=== PATIENT | female | born 1950 | race Hispanic/Latino ===

== ENCOUNTER 2017-11-20 07:35 | Day surgery (SDC) | payer MEDICARE, MEDICAID ==
[2017-11-17 14:27] VITALS: BMI 41.5
[2017-11-20 09:21] LABS: #Eosinphils 0.6 thou/uL (0.0-0.7); #Monocytes 0.6 thou/uL (0.11-0.59); #Neutrophils 5.6 thou/uL (1.40-6.50); %Basophils 0.5 % (0.0-1.0); %Eosinophils 6.6 % (0.0-10.0); %Lymphocytes 22.7 % (21.0-51.0); %Monocytes 6.4 % (0.0-10.0); %Neutrophils 63.8 % (42.0-75.0); Hemoglobin 10.4 g/dL (12.0-16.0); Mean Corpuscular HGB CONC 31.5 g/dL (32.0-36.0); Mean Corpuscular Hemoglobin 25.2 pg (27.0-31.0); Mean Platelet Volume 9.3 fL (7.4-10.4); Platelet Count 161 thou/uL (130-400); RBC Distribution Width 16.8 % (11.5-14.5); Red Blood Cell (RBC) Count 4.11 mill/uL (4.20-5.40); White Blood Cell (WBC) Count 8.8 thou/uL (4.8-10.8)
[2017-11-20 09:27] LABS: INR-International Normal Ratio 3.5; Prothrombin Time 35.5 SEC (12.0-14.7)
[2017-11-20 09:47] LABS: Anion Gap 20 mmol/L (10-20); BUN (Urea Nitrogen) 21 mg/dL (9.8-20.1); Calc. Creatinine Clearance 90 mL/min (70-130); Calcium 8.5 mg/dL (7.8-10.44); Carbon Dioxide 25 mmol/L (23-31); Chloride 102 mmol/L (98-107); Estimated GFR-MDRD 60; Glucose 145 mg/dL (80-115); Potassium 3.7 mmol/L (3.5-5.1); Sodium 143 mmol/L (136-145)
[2017-11-20] MEDS ORDERED: PROPOFOL 20 ML ONE (10:49)
[2017-11-20] MEDS ORDERED: PROPOFOL 0 ML ONE (10:49)
[2017-11-20] MEDS ORDERED: PROPOFOL 200 MG/20 ML VIAL ONE (10:57)
[2017-11-20] MEDS ORDERED: Hydrocortisone 1% Cream 30 GM TUBE ONE (11:20)
--- NOTE | 2017-11-20 14:37 | ECHO ---
TRANSESOPHAGEAL ECHOCARDIOGRAM: DATE OF SERVICE: 11/20/17 PREPROCEDURE DIAGNOSIS: Atrial fibrillation. Transesophageal echo performed for evaluation of left atrial appendage before cardioversion. [facility] provided anesthesia for the patient. Please see their notes for details. After adequate sedation was achieved, the transesophageal probe was inserted into the patient's mouth and into the esophagus without issues. Multiplanar views were then obtained. FINDINGS: Left ventricle is normal size with normal systolic function, EF estimated at 60-65% with no regional wall motion abnormalities. Left atrium is mildly dilated. Left atrial appendage is large appendage with reduced flow. There is s pontaneous echo contrast, but no mass or thrombus. Right atrium is severely dilated. No mass or thrombus. Right ventricle is normal size with normal systolic function. Aortic root is normal size. Aortic valve is sclerotic with no stenosis, but mild aortic insufficiency. Mitral valve is structurally normal. There is mild MR. No stenosis. Tricuspid valve is structurally normal. There is severe TR with RVSP estimated at 45 mmHg. Interatrial septum appears to be intact by color Doppler. Pulmonary valve is structurally normal with mild PI. CONCLUSIONS: 1. Normal systolic function, EF of 60-65%. 2. Left atrial enlargement. 3. Severe right atrial enlargement. 4. Aortic valve sclerosis with mild AI. 5. Mild MR. 6. Severe tricuspid regurgitation with RVSP estimated at 45 mmHg. 7. Mild PI. 8. Left atrial appendage is large appendage with spontaneous echo contrast, but no mass or thrombus. Reduced velocities.
--- NOTE | 2017-11-20 14:40 | OP ---
CARDIOLOGY PROCEDURE NOTE: Date: 11/20/17 PROCEDURE PERFORMED. Direct current cardioversion. SUMMARY: Ms. Miner is a pleasant 67-year-old female who comes to the hospital for planned cardioversi on. She had a TATIANA performed prior, which ruled out any thrombus. The Anesthesiology department provid ed sedation for the patient. Please see their notes. After adequate sedation was achieved and the tra nsesophageal echo proved no evidence of thrombus, one synchronized cardioversion shock was delivered 100 joules, which was unsuccessful. A second shock at 200 joules was unsuccessful. A third synchroniz ed shock at 360 joules was also unsuccessful. RECOMMENDATIONS: 1. Continue rate control strategy. 2. We will stop her flecainide as we will opt for rate control. 3. Continue blood thinners for stroke prophylaxis.
--- NOTE | 2017-11-21 15:14 | EKG ---
Test Reason : CADIOVERSION ATTEMPT Blood Pressure : / mmHG Vent. Rate : 091 BPM Atrial Rate : 220 BPM P-R Int : 000 ms QRS Dur : 090 ms QT Int : 394 ms P-R-T Axes : 000 -06 036 degrees QTc Int : 484 ms Atrial fibrillation Nonspecific T wave abnormality , probably digitalis effect Prolonged QT Abnormal ECG When compared with ECG of 20-NOV-2017 08:50, (Unconfirmed) Nonspecific T wave abnormality, worse in Inferior leads Confirmed by SHERIF ANDINO MD ([id number]) on 11/21/2017 3:14:27 PM Referred By: CRYSTAL Confirmed By:SHERIF ANDINO MD
--- NOTE | 2017-11-21 15:14 | EKG ---
Test Reason : PREOP Blood Pressure : / mmHG Vent. Rate : 088 BPM Atrial Rate : 096 BPM P-R Int : 000 ms QRS Dur : 084 ms QT Int : 404 ms P-R-T Axes : 000 005 080 degrees QTc Int : 488 ms Atrial fibrillation Nonspecific T wave abnormality , probably digitalis effect Prolonged QT Abnormal ECG Confirmed by SHERIF ANDINO MD ([id number]) on 11/21/2017 3:13:37 PM Referred By: CRYSTAL Confirmed By:SHERIF ANDINO MD
== END 2017-11-20 12:31 | disposition home or self-care (01) ==
LOC: SDC 07:35
PROVIDERS: ATTEND Internal Medicine Cardiovascular Disease
PROC: 5A2204Z Restoration of Cardiac Rhythm, Single (ICD-10-PCS; principal; 2017-11-20)
PROC: B246ZZ4 Ultrasonography of Right and Left Heart, Transesophageal (ICD-10-PCS; 2017-11-20)
DX: I48.1 Persistent atrial fibrillation (principal); I11.9 Hypertensive heart disease without heart failure; E11.9 Type 2 diabetes mellitus without complications; F41.9 Anxiety disorder, unspecified; F32.9 Major depressive disorder, single episode, unspecified; K21.9 Gastro-esophageal reflux disease without esophagitis; Z79.01 Long term (current) use of anticoagulants; Z79.4 Long term (current) use of insulin; Z79.899 Other long term (current) drug therapy
CPT/HCPCS: 36416; 80048; 85025; 85610; 85730; 92960; 93005; 93010; 93312; J2704

== ENCOUNTER 2017-12-22 09:19 | Outpatient (CLI) | payer MEDICARE, MEDICAID ==
[2017-12-22 10:33] LABS: PTT 44.3 SEC (22.9-36.1)
[2017-12-22 10:34] LABS: INR-International Normal Ratio 2.3; Prothrombin Time 25.4 SEC (12.0-14.7)
[2017-12-22 10:42] LABS: #Eosinphils 0.3 thou/uL (0.0-0.7); #Lymphocytes 1.3 thou/uL (1.20-3.40); #Monocytes 0.6 thou/uL (0.11-0.59); #Neutrophils 4.7 thou/uL (1.40-6.50); %Basophils 0.6 % (0.0-1.0); %Lymphocytes 18.5 % (21.0-51.0); %Monocytes 8.3 % (0.0-10.0); %Neutrophils 68.7 % (42.0-75.0); Hemoglobin 10.4 g/dL (12.0-16.0); Mean Corpuscular HGB CONC 29.6 g/dL (32.0-36.0); Mean Corpuscular Hemoglobin 23.2 pg (27.0-31.0); Mean Corpuscular Volume 78.5 fL (78.0-98.0); Mean Platelet Volume 9.6 fL (7.4-10.4); Platelet Count 169 thou/uL (130-400); RBC Distribution Width 16.4 % (11.5-14.5); Red Blood Cell (RBC) Count 4.46 mill/uL (4.20-5.40); White Blood Cell (WBC) Count 6.8 thou/uL (4.8-10.8)
[2017-12-22 10:50] LABS: ALT (SGPT) 9 U/L (8-55); AST (SGOT) 15 U/L (5-34); Albumin 3.6 g/dL (3.4-4.8); Alkaline Phosphatase 117 U/L (40-150); Anion Gap 14 mmol/L (10-20); BUN (Urea Nitrogen) 36 mg/dL (9.8-20.1); Bilirubin, Direct 0.3 mg/dL (0.1-0.3); Bilirubin, Total 0.6 mg/dL (0.2-1.2); Calc. Creatinine Clearance 0 mL/min (70-130); Calcium 8.8 mg/dL (7.8-10.44); Carbon Dioxide 29 mmol/L (23-31); Cardiac Risk 3.2 (Less than 4.5); Chloride 97 mmol/L (98-107); Cholesterol 97 mg/dl (< 200 Desired); Estimated GFR-MDRD 27; Globulin 3.3 g/dL (2.4-3.5); Glucose 113 mg/dL (80-115); HDL Cholesterol 30 mg/dL (>60 Neg Risk); LDL Cholesterol, Calculated 55 mg/dL; Potassium 4.2 mmol/L (3.5-5.1); Protein, Total 6.9 g/dL (6.0-8.3); Sodium 136 mmol/L (136-145); Triglycerides 61 mg/dL (Less than 150)
--- NOTE | 2017-12-22 16:54 | EKG ---
Test Reason : Blood Pressure : / mmHG Vent. Rate : 074 BPM Atrial Rate : 074 BPM P-R Int : 000 ms QRS Dur : 120 ms QT Int : 454 ms P-R-T Axes : 000 081 -19 degrees QTc Int : 503 ms Sinus rhythm with 1st degree A-V block Low voltage QRS Right bundle branch block Cannot rule out Inferior infarct , age undetermined Abnormal ECG When compared with ECG of 20-NOV-2017 11:34, Sinus rhythm has replaced Atrial fibrillation Right bundle branch block is now Present Minimal criteria for Inferior infarct are now Present Confirmed by UTE LIND, DR. Valdovinos ([id number]) on 12/22/2017 4:53:48 PM Referred By: CRYSTAL Confirmed By:DR. Aruna UNGER MD
== END 2017-12-22 09:20 | disposition home or self-care (01) ==
LOC: LABBT 09:19
PROVIDERS: ATTEND Internal Medicine Cardiovascular Disease
DX: Z01.818 Encounter for other preprocedural examination (principal); R94.30 Abnormal result of cardiovascular function study, unspecified
CPT/HCPCS: 80053; 80061; 80076; 84443; 85025; 85610; 85730; 93005; 93010

== ENCOUNTER 2017-12-26 06:03 | Day surgery (SDC) | payer MEDICARE, MEDICAID ==
[2017-12-22 09:32] VITALS: BMI 44.6
[2017-12-26] MEDS ORDERED: Lidocaine 1% (PF) 30 ML VIAL ONE (07:06)
[2017-12-26 07:57] LABS: INR-International Normal Ratio 1.3; Prothrombin Time 16.3 SEC (12.0-14.7)
[2017-12-26] MEDS ORDERED: Midazolam HCl 2 mg/2 ml Vial ONE (08:15)
[2017-12-26] MEDS ORDERED: Fentanyl 100 MCG/2 ML VIAL ONE (08:16)
[2017-12-26] MEDS ORDERED: Iopamidol 370 76% 100 ML VIAL ONE (10:22)
== END 2017-12-26 12:48 | disposition home or self-care (01) ==
LOC: CCL 06:03
PROVIDERS: ATTEND Internal Medicine Cardiovascular Disease
PROC: 4A023N7 Measurement of Cardiac Sampling and Pressure, Left Heart, Percutaneous Approach (ICD-10-PCS; principal; 2017-12-26)
PROC: B2111ZZ Fluoroscopy of Multiple Coronary Arteries using Low Osmolar Contrast (ICD-10-PCS; 2017-12-26)
DX: I25.10 Atherosclerotic heart disease of native coronary artery without angina pectoris (principal); E78.00 Pure hypercholesterolemia, unspecified; I10 Essential (primary) hypertension; E11.9 Type 2 diabetes mellitus without complications; E78.5 Hyperlipidemia, unspecified; F41.9 Anxiety disorder, unspecified; F32.9 Major depressive disorder, single episode, unspecified; K21.9 Gastro-esophageal reflux disease without esophagitis; I48.1 Persistent atrial fibrillation; Z79.01 Long term (current) use of anticoagulants; Z79.4 Long term (current) use of insulin; Z79.899 Other long term (current) drug therapy
CPT/HCPCS: 85610; 85730; 93458; C1760; C1769; 99152; J1644; J2001; J2250; J3010

== ENCOUNTER 2018-01-06 01:44 | Emergency (ER) | payer MEDICARE, MEDICAID ==
[2018-01-06 03:19] LABS: Anion Gap 19 mmol/L (10-20); BUN (Urea Nitrogen) 36 mg/dL (9.8-20.1); Calc. Creatinine Clearance 0 mL/min (70-130); Calcium 8.5 mg/dL (7.8-10.44); Carbon Dioxide 28 mmol/L (23-31); Chloride 95 mmol/L (98-107); Estimated GFR-MDRD 36; Glucose 108 mg/dL (80-115); Potassium 4.9 mmol/L (3.5-5.1); Sodium 137 mmol/L (136-145)
[2018-01-06 03:30] LABS: #Basophils 0.1 thou/uL (0.0-0.2); #Eosinphils 0.3 thou/uL (0.0-0.7); #Monocytes 0.8 thou/uL (0.11-0.59); #Neutrophils 5.9 thou/uL (1.40-6.50); %Basophils 0.8 % (0.0-1.0); %Eosinophils 3.8 % (0.0-10.0); %Lymphocytes 21.5 % (21.0-51.0); %Monocytes 8.9 % (0.0-10.0); Anisocytosis SLIGHT = 6-15 cells (100X) (0-5/hpf); Hemoglobin 8.8 g/dL (12.0-16.0); Hypochromia SLIGHT = 6-15 cells (100X) (0-5/hpf); MDiff Complete? YES; Mean Corpuscular HGB CONC 29.6 g/dL (32.0-36.0); Mean Corpuscular Hemoglobin 22.1 pg (27.0-31.0); Mean Corpuscular Volume 74.8 fL (78.0-98.0); Mean Platelet Volume 8.8 fL (7.4-10.4); Microcytosis SLIGHT = 6-15 cells (100X) (0-5/hpf); Ovalocytes SLIGHT = 2-5 cells (100X) (0-1/hpf); Platelet Count 156 thou/uL (130-400); Poikilocytosis SLIGHT = 6-15 cells (100X) (0-5/hpf); RBC Distribution Width 17.3 % (11.5-14.5); Red Blood Cell (RBC) Count 3.97 mill/uL (4.20-5.40); White Blood Cell (WBC) Count 9.1 thou/uL (4.8-10.8)
[2018-01-06] MEDS ORDERED: HYDROcodone/Acetaminophen 5/325 mg Tablet ONE (03:55)
[2018-01-06] MEDS ORDERED: Morphine 4 MG/ML VIAL ONE (07:04)
[2018-01-06] MEDS ORDERED: Ondansetron HCl/PF 4 MG/2 ML Vial ONE (07:04)
--- NOTE | 2018-01-06 08:49 | ULT ---
PRELIMINARY REPORT/[facility]/EMERGENTY AFTER-HOURS PROCEDURE US Right Duplex Lower Extremity Veins, Limited EXAM DATE/TIME: 01/06/2018 3:21 AM CLINICAL HISTORY: 67 years old, female; Pain and signs and symptoms; Edema, localized; Lower extremity, right; Leg, upp er and leg, lower; Prior surgery; Surgery date: <1 month; Surgery type: Hrt cath. RT groin access TECHNIQUE: Real-time Duplex ultrasound scan of the Right lower extremity with 2-D william scale, color Doppler flow and spectral waveform analysis. Limited exam was focused on the right lower extremity veins. COMPARISON: No relevant prior studies available. FINDINGS: Right common femoral artery pseudoaneurysm measuring about 3.1 x 2.0 x 2.3 cm by my measurement versu s AV fistula. No evidence of DVT in right common femoral, femoral, popliteal, or posterior tibial vei ns. IMPRESSION: Right common femoral artery pseudoaneurysm measuring about 3.1 x 2.0 x 2.3 cm versus AV f istula. Thank you for allowing us to participate in the care of your patient. Dictated and Authenticated by: Wes Roberto MD 01/06/2018 4:27 AM Central Time ([place] & [place]) FINAL REPORT EMERGENCY AFTER HOURS RIGHT LOWER EXTREMITY VENOUS DUPLEX EXAM: Date: 01/06/18 HISTORY: Recent heart cath with right groin access, right leg swelling and edema. FINDINGS: Real-time imaging included evaluation of the common femoral, superficial and profunda femoral, saphen ous, popliteal, and posterior tibial veins. This shows a patent deep venous system with normal compre ssibility and augmentation. There is a pseudoaneurysm measuring approximately 2.0 x 3.0 cm involving the right common femoral artery, which shows flow within it. IMPRESSION: 1. No evidence of deep venous thrombosis. 2. Pseudoaneurysm involving the right common femoral artery. This report is in agreement with the preliminary report issued by [facility]. POS: AGATHA
--- NOTE | 2018-01-06 09:39 | ULT ---
VASCULAR ULTRASOUND: CLINICAL HISTORY: Pseudoaneurysm, status post compression. TECHNIQUE: Khan-scale Doppler color-flow and spectral analysis was performed of the right inguinal region, at th e site of the patient's known pseudoaneurysm. Reference made to preceding exam from 01/06/2018. FINDINGS: Sonographic imaging performed post compression reveals minimal residual internal flow with predominan t thrombosis. The diameter of the pseudoaneurysm is approximately 5.1 cm. IMPRESSION: Minimal residual internal flow of right inguinal region pseudoaneurysm, status post compression. As indicated, continued imaging followup may be obtained. POS: AGATHA
== END 2018-01-06 09:17 | disposition home or self-care (01) ==
LOC: SCSER 01:44 → ERS 09:17
DX: I72.4 Aneurysm of artery of lower extremity (principal); R31.9 Hematuria, unspecified; R60.9 Edema, unspecified; I48.91 Unspecified atrial fibrillation; E11.9 Type 2 diabetes mellitus without complications; K21.9 Gastro-esophageal reflux disease without esophagitis; I10 Essential (primary) hypertension; Z79.899 Other long term (current) drug therapy; Z79.01 Long term (current) use of anticoagulants
CPT/HCPCS: 76936; 80048; 83880; 85025; 96374; 96375; J2270; J2405

== ENCOUNTER 2018-02-02 10:24 | Outpatient (CLI) | payer MEDICARE, MEDICAID ==
--- NOTE | 2018-02-12 17:33 | MMO ---
BILATERAL SCREENING MAMMOGRAM: 02/02/18 INDICATION: Annual exam. COMPARISON: Prior exam dated 07/26/10 and 11/06/11. FINDINGS: The interpretation of the examination was assisted with computer aided detection. There are scattered fibroglandular elements bilaterally. There is a new focal asymmetry seen within the 12 o'clock position of the anterior left breast on the CC and MLO projections. Recommend further evaluation with spot magnification compression views in th e CC and MLO projection. There are benign calcifications within the right breast. There are benign calcifications in the left breast. IMPRESSION: BIRADS 0: Incomplete: Need Additional Imaging Evaluation and/or Prior Mammograms for Comparison. There is a new focal asymmetry within the 12 o'clock position in the anterior left breast which requi res further evaluation. Focal spot magnification compression views in CC and MLO projection recommend ed. Ultrasound may be necessary for further evaluation. POS: AGATHA
== END 2018-02-02 10:25 | disposition home or self-care (01) ==
LOC: SCSMAMMO 10:24
PROVIDERS: ATTEND Family Medicine
DX: Z12.31 Encounter for screening mammogram for malignant neoplasm of breast (principal)
CPT/HCPCS: 77067